=== PATIENT | female | born 1975 | race Caucasian/White ===

== ENCOUNTER 2018-06-17 15:21 | Observation (INO) ==
--- NOTE | 2018-06-17 17:47 | Emergency Department Note ---
Disposition Clinical Impression: Abdominal pain Qualifiers: Abdominal location: right lower quadrant Qualified Code(s): R10.31 - Right lower quadrant pain Disposition: Admitted As Inpatient Condition: Good Referrals: Carl Link MD [Primary Care Provider] - Forms: ED Satisfaction Letter, Work/School Release Time of Disposition: 21:44 General Adult HPI - General Chief complaint: ED Abdominal Pain Stated complaint: RLQ Pain Time Seen by Provider: 06/17/18 17:46 Source: patient Limitations: no limitations Nursing Notes Reviewed: Yes Vital Signs Reviewed: Yes - History of Present Illness HPI Narrative: Female patient presenting to the emergency room complaining of right lower quadrant pain. Has been present for 5 days. Was seen here 3 days ago and had a negative CT of her abdomen. Has been taking Percocet as well as Phenergan to help with the pain but is not getting any relief. Was seen by her primary care physician today and sent here for further abdominal pain. Denies any actual vomiting but does report consistent nausea. Has been taking Phenergan for this with no relief. She reports a high temp of 100.8 on Saturday. Denies constipation does describe the pain as a sharp sensation to the right lower quadrant. Waxes and wanes in intensity however is always present. Does report diarrhea as well. No blood in her stool or urine. No difficult to urinating however states her urine has decreased secondary to decreased intake. Pain Scale: 7 - Related Data Home Medications Medication Instructions Recorded Confirmed Amitriptyline [Elavil] 100 mg PO HS 06/17/18 06/17/18 Docosahexanoic Acid [ Dha] 200 mg PO DAILY 06/17/18 06/17/18 Gabapentin [Neurontin] 300 mg PO TID 06/17/18 06/17/18 LORazepam [Ativan] 1 - 1.5 mg PO HS PRN 06/17/18 06/17/18 Meloxicam 15 mg PO DAILY 06/17/18 06/17/18 Metoprolol Succinate [Toprol Xl] 25 mg PO DAILY 06/17/18 06/17/18 Nystatin Cream [Mycostatin Cream] 1 appl TP Q8H 06/17/18 06/17/18 Ondansetron ODT [Zofran ODT] 4 mg SL Q4H PRN 06/17/18 06/17/18 OxyCODONE/APAP 5/325 [Percocet 1 tab PO DAILY PRN 06/17/18 06/17/18 5/325 MG] Promethazine [Phenergan] 25 mg PO Q4H PRN 06/17/18 06/17/18 Rizatriptan Benzoate [Maxalt] 10 mg PO DAILY PRN 06/17/18 06/17/18 Sertraline [Zoloft] 50 mg PO DAILY 06/17/18 06/17/18 Tizanidine HCl 4 mg PO TID 06/17/18 06/17/18 Allergies Allergy/AdvReac Type Severity Reaction Status Date / Time Hydromorphone [From Dilaudid] AdvReac See Verified 06/17/18 20:15 Comments All systems ED: reviewed and negative except as stated. Review of Systems: As Per HPI Constitutional: Reports: fever, chills, other (Decreased by mouth intake) ENT ED: Denies: congestion Cardiovascular: Denies: chest pain, syncope Respiratory: Reports: other (Reports that she does not want to take a deep breath is when she does take a deep breath her right lower quadrant hurts worse. ). Denies: cough, dyspnea Gastrointestinal: Reports: abdominal pain (Right lower quadrant for 5 days.), nausea, diarrhea. Denies: vomiting, hematemesis, melena, hematochezia Genitourinary: Denies: urgency, dysuria, frequency, hematuria Musculoskeletal: Denies: back pain, neck pain Integumentary: Denies: rash Neurological: Reports: weakness. Denies: headache Past Medical History - Past Medical History Attestation: Yes The following information was validated with the patient. Source: patient Medical history: Reports: migraine, other Surgical history: Reports: orthopedic, other (fusion L5 S1) Psychiatric history: Reports: anxiety SYNTHETIC STAPLE EXTRUDER history: Reports: no SYNTHETIC STAPLE EXTRUDER history - Social History Smoking Status: Current every day smoker Smokeless Tobacco Status: No Alcohol use: Reports: none Drug use: Reports: none Physical Exam - General Limitations: no limitations General appearance: alert, in distress (Appears to be in pain.) - Head Head exam: atraumatic, normocephalic, normal inspection - Eye Eye exam: Present: normal appearance, PERRL, EOMI - ENT ENT exam: normal exam, normal oropharynx, mucous membranes moist - Neck Neck exam: Present: normal inspection, full ROM, trachea midline - Chest Chest inspection: Present: normal inspection, symmetric chest wall rise - Respiratory Respiratory exam: Present: normal lung sounds bilaterally. Absent: respiratory distress, accessory muscle use - Cardiovascular Cardiovascular exam: Present: regular rate, normal rhythm, normal heart sounds - Abdominal Exam Abdominal exam: Present: soft, tenderness (To palpation of right lower quadrant. No pain to the right upper left upper left lower. However she has pain in her right lower quadrant if you palpate the other quadrants. Abdomen does not appear to be peritoneal. Not rigid.), guarding (Right lower quadrant) , Rovsing's sign, tenderness at McBurney's Point. Absent: distention, rigidity , organomegaly, Billings's sign - Extremities Exam Extremities exam: Present: normal inspection, full ROM, normal capillary refill. Absent: tenderness, pedal edema - Back Exam Back exam: Present: normal inspection, full ROM. Absent: tenderness, CVA tenderness (R), CVA tenderness (L) - Neurological Exam Neurological exam: Present: alert, oriented X3 - Psychiatric Psychiatric exam: Present: normal affect, normal mood - Skin Skin exam: Present: warm, dry, intact, normal color. Absent: rash, cyanosis, diaphoresis Course Course Narrative: Female patient does appear to be in comfortable. She was seeing her primary care physician today for follow-up for previous ER visit here for abdominal pain. She states that her primary care physician Dr. Link did speak with Dr. Kearns who suggested she come to the emergency department. Previous CT shows no acute appendicitis however the pain is consistent. She does appear to be in decent amount of pain on palpation. We will image patient's abdomen. Positive basic lab workup. She did have elevated liver enzymes on her previous visit here. We will provide patient with pain medication as well as antiemetic. We will also provide patient with a liter of fluid. - Reevaluation(s) Reevaluation #1: Despite a negative CT and lab work patient is still having right lower quadrant abdominal pain. We will admit to the hospital for serial abdominal exams and her intractable abdominal pain. We have provided her with morphine at this time. She appears to be resting okay. Patient does have a significant amount of squamous epithelial in her urine. She denies any burning on urination. I do not believe this is a UTI at this time. Patient also has mildly elevated liver enzymes. She has no right upper quadrant abdominal pain. Patient's pain is still present however she is getting the ketamine infusion at this time. We did place a consult for surgery. Time: 21:43 - Consultations Consultation #1: Dr. Walsh accepted patient in stable condition. Time: 22:00 Vital Signs Temperature 99.3 F 06/17/18 15:52 Pulse Rate 97 06/17/18 15:52 Respiratory Rate 16 06/17/18 15:52 Blood Pressure 144/100 06/17/18 15:52 O2 Sat by Pulse Oximetry 98 06/17/18 15:52 Temperature 99.3 F 06/17/18 15:52 Pulse Rate 86 06/17/18 21:59 Respiratory Rate 16 06/17/18 21:59 Blood Pressure 123/79 06/17/18 21:59 O2 Sat by Pulse Oximetry 95 06/17/18 21:59 Oxygen Delivery Oxygen Delivery Room Air Medical Decision Making - Medical Records Medical records reviewed: Yes I reviewed the patient's medical records. - Lab Data Lab results reviewed: Yes I reviewed the patient's lab results. Result diagrams: 06/17/18 19:49 06/17/18 19:49 Lab Results 06/17/18 06/17/18 06/17/18 Range/Units 18:54 19:49 19:49 WBC 7.3 (4.3-11.1) K/mcL RBC 5.07 H (3.82-4.97) M/mcL Hgb 15.1 (11.5-15.4) g/dL Hct 44.3 (35.3-44.9) % MCV 87.4 (83.0-100.0) fL MCH 29.8 (28.0-33.3) pg MCHC 34.1 (31.6-35.5) g/dL RDW 12.6 (11.5-14.5) % Plt Count 206 (140-400) K/mcL MPV 9.4 (9.4-12.4) fL Immature Gran % 0.4 (0-4) % Seg Neutrophils % 54.3 % Lymphocytes % 36.2 % Monocytes % 6.2 % Eosinophils % 1.9 % Basophils % 1.0 % Neutrophils # 4.0 (1.6-8.9) K/mcL Lymphocytes # 2.6 (0.6-4.6) K/mcL Monocytes # 0.5 (0.0-1.3) K/mcL Eosinophils # 0.1 (0.0-0.6) K/mcL Basophils # 0.1 (0.0-0.2) K/mcL Sodium 138 (136-145) mEq/L Potassium 3.9 (3.5-5.1) mEq/L Chloride 110 H (98-107) mEq/L Carbon Dioxide 24 (23-29) mEq/L BUN 9 (6-20) mg/dL Creatinine 0.69 (0.60-1.20) mg/dL Est GFR ( Amer) > 60 (> 60) Est GFR (Non-Af Amer) > 60 (> 60) BUN/Creatinine Ratio 13 (6-26) Glucose 78 (70-105) mg/dL Calculated Osmolality 284 (280-300) Calcium 8.7 (8.6-10.3) mg/dL Total Bilirubin 0.4 (0.3-1.0) mg/dL Direct Bilirubin 0.0 (0.0-0.2) mg/dL Indirect Bilirubin 0.4 (0.0-1.2) mg/dL AST 43 H (13-39) Units/L ALT 56 H (7-52) Units/L Alkaline Phosphatase 90 (34-104) Units/L Serum Total Protein 6.7 (6.4-8.9) g/dL Albumin 3.8 (3.5-5.7) g/dL Globulin 2.9 (2.4-3.5) g/dL Albumin/Globulin Ratio 1.3 (1.1-2.2) Amylase 31 (29-103) Units/L Lipase 27 (11-82) Units/L Urine Color Yellow (Yellow) Urine Clarity Cloudy A (Clear) Urine pH 5.5 (5.0-8.0) pH Units Ur Specific [place] 1.018 (1.010-1.025) Urine Protein Negative (Neg-Trace) mg/dL Urine Glucose (UA) Normal (Normal) mg/dL Urine Ketones Negative (Negative) mg/dL Urine Blood Negative (Negative) Urine Nitrite Negative (Negative) Urine Bilirubin Negative (Negative) Urine Urobilinogen Normal (Normal) mg/dL Ur Leukocyte Esterase Small H (Negative) Urine Microscopic WBC 5-15 H (0-3) per hpf Ur Squamous Epith Cells Many H (None-Few) per lpf Urine Bacteria Moderate H (None-Few) per hpf Hyaline Casts None Seen (None-Few) per lpf Ur Culture Indicated? NO. A (NO) - Radiology Data Radiology results reviewed: Yes I reviewed the patient's radiology results. Abdomen/Pelvis CT 06/17/18 18:09 IMPRESSION: 1. No acute intra-abdominal process identified. 2. Hepatic steatosis. D/ / Jae Caballero MD / Jae Caballero MD Interpreting Provider: Jae Caballero MD
[2018-06-17] MEDS ORDERED: Ondansetron 4 MG/2 ML VIAL IVP ONE (18:08)
[2018-06-17] MEDS ORDERED: *HR* FentaNYL (PF) 100 MCG/2 ML VIAL IVP ONE ×2 (18:10→20:03)
[2018-06-17] MEDS ORDERED: 0.9 % Sodium Chloride 1,000 ML IVC ONE (18:21)
[2018-06-17 19:04] LABS: Bilirubin,Urine Negative (Negative); Blood,Urine Negative (Negative); Clarity,Urine Cloudy (Clear); Color,Urine Yellow (Yellow); Glucose,Urine (UA) Normal (Normal); Ketones,Urine Negative (Negative); Leukocyte Esterase,Urine Small (Negative); Nitrite,Urine Negative (Negative); PH,Urine 5.5 pH Units (5.0-8.0); Protein,Urine Negative (Neg-Trace); Specific Gravity,Urine 1.018 (1.010-1.025); Urobilinogen,Urine Normal (Normal)
[2018-06-17 19:06] LABS: Bacteria,Urine Moderate per hpf (None-Few); Hyaline Casts,Urine None Seen per lpf (None-Few); Squamous Epithelial Cell,Urine Many per lpf (None-Few)
[2018-06-17] MEDS ORDERED: Ketamine *HR* 20 MG in 0.9 % Sodium Chloride 100 ML IVPB ONE (20:02)
[2018-06-17] MEDS ORDERED: *HR* Morphine 2 MG/ML SYRINGE IVP STA (20:06)
[2018-06-17 20:16] LABS: Basophils # 0.1 K/mcL (0.0-0.2); Eosinophils # 0.1 K/mcL (0.0-0.6); Eosinophils % 1.9 %; Hematocrit 44.3 % (35.3-44.9); Hemoglobin 15.1 g/dL (11.5-15.4); Immature Granulocytes % 0.4 % (0-4); Lymphocytes # 2.6 K/mcL (0.6-4.6); Lymphocytes % 36.2 %; Mean Corpuscular HGB Conc 34.1 g/dL (31.6-35.5); Mean Corpuscular Hemoglobin 29.8 pg (28.0-33.3); Mean Corpuscular Volume 87.4 fL (83.0-100.0); Mean Platelet Volume 9.4 fL (9.4-12.4); Monocytes # 0.5 K/mcL (0.0-1.3); Monocytes % 6.2 %; Platelet Count 206 K/mcL (140-400); Red Blood Count 5.07 M/mcL (3.82-4.97); Red Cell Distribution Width 12.6 % (11.5-14.5); Segmented Neutrophils % 54.3 %
[2018-06-17 20:37] LABS: Alanine Aminotransferase 56 Units/L (7-52); Albumin 3.8 g/dL (3.5-5.7); Albumin/Globulin Ratio 1.3 (1.1-2.2); Alkaline Phosphatase 90 Units/L (34-104); Amylase 31 Units/L (29-103); Aspartate Amino Transferase 43 Units/L (13-39); BUN/Creatinine Ratio 13 (6-26); Bilirubin,Indirect 0.4 mg/dL (0.0-1.2); Bilirubin,Total 0.4 mg/dL (0.3-1.0); Blood Urea Nitrogen 9 mg/dL (6-20); Calcium 8.7 mg/dL (8.6-10.3); Carbon Dioxide 24 mEq/L (23-29); Chloride 110 mEq/L (98-107); Globulin 2.9 g/dL (2.4-3.5); Glucose 78 mg/dL (70-105); Lipase 27 Units/L (11-82); Osmolality,Calculated 284 (280-300); Potassium 3.9 mEq/L (3.5-5.1); Sodium 138 mEq/L (136-145); Total Protein 6.7 g/dL (6.4-8.9); eGFR For Non-African Americans > 60 (> 60)
[2018-06-17] MEDS: Nicotine 7 MG PATCH.TD24 TD SCH (21:10)
[2018-06-18] MEDS ORDERED: Ketorolac 15 MG/ML VIAL IVP PRN (00:12)
[2018-06-18] MEDS ORDERED: Naloxone 0.4 MG/ML INJ IVP PRN ×2 (00:12)
[2018-06-18] MEDS ORDERED: Ringers Solution, Lactated 1,000 ML IVC SCH (00:15)
[2018-06-18] MEDS ORDERED: *HR* LORazepam 1 MG TABLET PO PRN (00:17)
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
--- NOTE | 2018-06-18 00:40 | Emergency Department Note ---
Disposition Clinical Impression: Abdominal pain Qualifiers: Abdominal location: right lower quadrant Qualified Code(s): R10.31 - Right lower quadrant pain Disposition: Admitted As Inpatient Condition: Good General Adult HPI - General Chief complaint: ED Abdominal Pain Stated complaint: RLQ Pain Time Seen by Provider: 06/17/18 17:46 Source: patient Limitations: no limitations - History of Present Illness Pain Scale: 8 - Related Data Home Medications Medication Instructions Recorded Confirmed Amitriptyline [Elavil] 100 mg PO HS 06/17/18 06/17/18 Docosahexanoic Acid [ Dha] 200 mg PO DAILY 06/17/18 06/17/18 Gabapentin [Neurontin] 300 mg PO TID 06/17/18 06/17/18 LORazepam [Ativan] 1 - 1.5 mg PO HS PRN 06/17/18 06/17/18 Meloxicam 15 mg PO DAILY 06/17/18 06/17/18 Metoprolol Succinate [Toprol Xl] 25 mg PO DAILY 06/17/18 06/17/18 Nystatin Cream [Mycostatin Cream] 1 appl TP Q8H 06/17/18 06/17/18 Ondansetron ODT [Zofran ODT] 4 mg SL Q4H PRN 06/17/18 06/17/18 OxyCODONE/APAP 5/325 [Percocet 1 tab PO DAILY PRN 06/17/18 06/17/18 5/325 MG] Promethazine [Phenergan] 25 mg PO Q4H PRN 06/17/18 06/17/18 Rizatriptan Benzoate [Maxalt] 10 mg PO DAILY PRN 06/17/18 06/17/18 Sertraline [Zoloft] 50 mg PO DAILY 06/17/18 06/17/18 Tizanidine HCl 4 mg PO TID 06/17/18 06/17/18 Allergies Allergy/AdvReac Type Severity Reaction Status Date / Time Hydromorphone [From Dilaudid] AdvReac See Verified 06/17/18 20:15 Comments Constitutional: Reports: fever, chills, other (Decreased by mouth intake) ENT ED: Denies: congestion Cardiovascular: Denies: chest pain, syncope Respiratory: Reports: other (Reports that she does not want to take a deep breath is when she does take a deep breath her right lower quadrant hurts worse. ). Denies: cough, dyspnea Gastrointestinal: Reports: abdominal pain (Right lower quadrant for 5 days.), nausea, diarrhea. Denies: vomiting, hematemesis, melena, hematochezia Genitourinary: Denies: urgency, dysuria, frequency, hematuria Musculoskeletal: Denies: back pain, neck pain Integumentary: Denies: rash Neurological: Reports: weakness. Denies: headache Past Medical History - Past Medical History Medical history: Reports: migraine, other Surgical history: Reports: orthopedic, other Psychiatric history: Reports: anxiety DRAMATIC CRITIC history: Reports: no DRAMATIC CRITIC history - Social History Smoking Status: Current every day smoker Smokeless Tobacco Status: No Alcohol use: Reports: none Drug use: Reports: none Physical Exam - General Limitations: no limitations General appearance: alert, in distress (Appears to be in pain.) Course Vital Signs Temperature 99.3 F 06/17/18 15:52 Pulse Rate 97 06/17/18 15:52 Respiratory Rate 16 06/17/18 15:52 Blood Pressure 144/100 06/17/18 15:52 O2 Sat by Pulse Oximetry 98 06/17/18 15:52 Temperature 98.4 F 06/17/18 23:08 Pulse Rate 91 06/17/18 23:08 Respiratory Rate 18 06/17/18 23:08 Blood Pressure 137/89 06/17/18 23:08 O2 Sat by Pulse Oximetry 93 06/18/18 00:05 Oxygen Delivery Oxygen Delivery Room Air Medical Decision Making - Lab Data Result diagrams: 06/17/18 19:49 06/17/18 19:49 Lab Results 06/17/18 06/17/18 06/17/18 Range/Units 18:54 19:49 19:49 WBC 7.3 (4.3-11.1) K/mcL RBC 5.07 H (3.82-4.97) M/mcL Hgb 15.1 (11.5-15.4) g/dL Hct 44.3 (35.3-44.9) % MCV 87.4 (83.0-100.0) fL MCH 29.8 (28.0-33.3) pg MCHC 34.1 (31.6-35.5) g/dL RDW 12.6 (11.5-14.5) % Plt Count 206 (140-400) K/mcL MPV 9.4 (9.4-12.4) fL Immature Gran % 0.4 (0-4) % Seg Neutrophils % 54.3 % Lymphocytes % 36.2 % Monocytes % 6.2 % Eosinophils % 1.9 % Basophils % 1.0 % Neutrophils # 4.0 (1.6-8.9) K/mcL Lymphocytes # 2.6 (0.6-4.6) K/mcL Monocytes # 0.5 (0.0-1.3) K/mcL Eosinophils # 0.1 (0.0-0.6) K/mcL Basophils # 0.1 (0.0-0.2) K/mcL Sodium 138 (136-145) mEq/L Potassium 3.9 (3.5-5.1) mEq/L Chloride 110 H (98-107) mEq/L Carbon Dioxide 24 (23-29) mEq/L BUN 9 (6-20) mg/dL Creatinine 0.69 (0.60-1.20) mg/dL Est GFR ( Amer) > 60 (> 60) Est GFR (Non-Af Amer) > 60 (> 60) BUN/Creatinine Ratio 13 (6-26) Glucose 78 (70-105) mg/dL Calculated Osmolality 284 (280-300) Calcium 8.7 (8.6-10.3) mg/dL Total Bilirubin 0.4 (0.3-1.0) mg/dL Direct Bilirubin 0.0 (0.0-0.2) mg/dL Indirect Bilirubin 0.4 (0.0-1.2) mg/dL AST 43 H (13-39) Units/L ALT 56 H (7-52) Units/L Alkaline Phosphatase 90 (34-104) Units/L Serum Total Protein 6.7 (6.4-8.9) g/dL Albumin 3.8 (3.5-5.7) g/dL Globulin 2.9 (2.4-3.5) g/dL Albumin/Globulin Ratio 1.3 (1.1-2.2) Amylase 31 (29-103) Units/L Lipase 27 (11-82) Units/L Urine Color Yellow (Yellow) Urine Clarity Cloudy A (Clear) Urine pH 5.5 (5.0-8.0) pH Units Ur Specific [place] 1.018 (1.010-1.025) Urine Protein Negative (Neg-Trace) mg/dL Urine Glucose (UA) Normal (Normal) mg/dL Urine Ketones Negative (Negative) mg/dL Urine Blood Negative (Negative) Urine Nitrite Negative (Negative) Urine Bilirubin Negative (Negative) Urine Urobilinogen Normal (Normal) mg/dL Ur Leukocyte Esterase Small H (Negative) Urine Microscopic WBC 5-15 H (0-3) per hpf Ur Squamous Epith Cells Many H (None-Few) per lpf Urine Bacteria Moderate H (None-Few) per hpf Hyaline Casts None Seen (None-Few) per lpf Ur Culture Indicated? NO. A (NO) Attestation Statement - Attestation Attestation: I examined this patient and my medical decision-making was reviewed with the Resident Physician. I agree with the documented findings, disposition and treatment plan as described except to the extent set forth below. Abdominal pain, negative CT for appy. Very concerning history, tenderness exactly at McBurney's point. Multiple doses of analgesics in the ED, minimal change in pain. 2nd visit for same complaint in 48 hours with a concerning exam , warrants observation/surgical evaluation.
[2018-06-18] MEDS: OXYCODONE Oral CONC 10 MG/0.5 ML ORAL.SYG SL PRN ×2 (00:53→11:53)
[2018-06-18] MEDS: tiZANidine 4 MG TABLET PO SCH ×2 (00:54→10:14)
[2018-06-18] MEDS: Ondansetron 4 MG/2 ML VIAL IVP PRN ×2 (00:54→10:19)
[2018-06-18] MEDS: *HR* Heparin 5,000 UNIT/ML VIAL SQ SCH ×3 (00:55→14:16)
[2018-06-18] MEDS ORDERED: Gabapentin 300 MG CAPSULE PO SCH (09:00)
[2018-06-18] MEDS ORDERED: Metoprolol XL (24 HR) Succ 25 MG TAB.ER.24H PO SCH (09:00)
[2018-06-18] MEDS: Nicotine 7 MG PATCH.TD24 TD SCH (10:14)
[2018-06-18] MEDS ORDERED: Ketorolac 30 MG/ML VIAL IVP PRN (10:45)
[2018-06-18] MEDS ORDERED: Ringers Solution, Lactated 250 ML IVC ONE (10:59)
--- NOTE | 2018-06-18 11:16 | Event Note ---
Date of Encounter: 06/18/18 Time of Encounter: 11:13 Patient continues to have significant abdominal pain. Located mainly in the right lower quadrant. Also reports nausea. Pain not relieved despite receiving Toradol. According to nurse, patient had some relief after she received oxycodone sublingually last night. However patient's blood pressure has been on the lower side of normal. Hence this medication has not been given so far this morning. Patient and family are mainly concerned that the patient' s daughters had similar episodes of abdominal pain and although the CT scans were negative, she was eventually diagnosed with appendicitis during exploratory laparotomy. As such they are very much concerned that patient may be having similar symptoms. Patient reports that her daughters have Ehler- Danlos syndrome and she suspects that she has the same disease. Discussed patient's symptoms with surgery. We will evaluate the patient later today. In the meantime continue symptomatic treatment. Keep nothing by mouth. IV fluids and pain control.
[2018-06-18] MEDS ORDERED: NON-FORMULARY MEDICATION 1 EACH EACH (Rizatriptan Benzoate [Maxalt] 10 MG) PO PRN (11:24)
[2018-06-18] MEDS ORDERED: SUMAtriptan succinate 50 MG TABLET PO PRN (11:35)
--- NOTE | 2018-06-18 12:29 | General Surgery Consult Note ---
<Frandy Davies R - Last Filed: 06/18/18 12:21> Date of Encounter: 06/18/18 Time of Encounter: 12:22 Assessment and Plan (1) Abdominal pain Current Visit: Yes Status: Acute CT scan negative for acute findings, WBC normal, patient is afebrile Patient and family is requesting exploratory surgery at this time. Plan: Exploratory surgery would not be recommended this time given CT, laboratory findings, and unclear etiology of patient's pain. Recommend conservative measures, patient is on Percocet at baseline and subsequently her pain will be more difficult to control Comfort care and pain management prn antiemetic May advance diet as tolerated by patient. Ambulation 3 times a day Patient and family are not open to conservative treatment options. At this time they are requesting transfer to outside hospital. I have relayed this information to primary care team. Pending acceptance of the admission patient is okay for transfer. If patient is transferred she would like hardcopies of records of hospitalization as well as imaging CDs in hand when she leaves. Qualifiers: Abdominal location: right lower quadrant Qualified Code(s): R10.31 - Right lower quadrant pain History of Present Illness Consult date: 06/17/18 (Dr. Kearns) Reason for consult: abdominal pain Requesting physician: Aliya Greenberg History of present illness: She is 42-year-old female with a history of chronic low back pain secondary to fracture and orthopedic fusion. Patient developed right lower quadrant abdominal pain 5 days ago. Pain was progressive in intensity and became sharp in quality, worse with movement. Admits to associated nausea and vomiting at onset, and fever with highest measured temperature of 100.8 last Saturday. Reports poor oral intake since onset. Denies hematemesis, hemoptysis, hematochezia or melena. Patient does admit to diarrhea the day before onset which has resolved. Patient initially presented to the emergency department on 06/15/2018. CT abdomen and pelvis at time was negative for acute process, vital signs and labs were within normal limits. Patient was discharged to home with antirheumatic and pain medication. Patient reports the pain progressed, she presented to her primary care physician. PCP contacted Dr. Kearns who made the recommendation that she be evaluated in the ED. Patient returned to the ED on for reevaluation. CT abdomen and pelvis again was obtained and negative for acute abnormality. Laboratory and vital signs were within normal limits. Patient reports that pain medicine is not effective at controlling her pain. She has difficulty ambulating due to pain. Patient reports a family history of Rebecca-Danlos syndrome affecting her 2 daughters. Both of her daughters experienced similar right lower quadrant pain with negative CT findings and positive acute appendicitis upon laparoscopic exploration. Patient is concerned that she may also have acute appendicitis despite negative CT findings and normal WBC. She is requesting surgical evaluation and would like to undergo laparoscopic exploratory surgery due to intensity of pain. Past surgical history includes laparoscopic cholecystectomy, open hysterectomy, and lumbar fusion. Patient denies history of small bowel obstruction. Past Med Surg Social Fam HX - Past Medical History Medical history: migraine, other Additional medical history: chronic back pain Psychiatric history: anxiety - Past Surgical History Surgical History: cholecystectomy, hysterectomy, orthopedic, other Additional surgical history: L1 S5 fusion - Social History Smoking Status: Current every day smoker Smokeless Tobacco Status: No Alcohol use: none Drug use: none - Family History Mother Adopted: [place]: [place] Family Member Ethnicity: Non- Living Status: Still Living Hx Family GI Disorders: Yes Hx Family Endocrine Disorder: Yes Medications and Allergies Amitriptyline [Elavil] 100 mg PO HS 06/17/18 [History] Docosahexanoic Acid [ Dha] 200 mg PO DAILY 06/17/18 [History] Gabapentin [Neurontin] 300 mg PO TID 06/17/18 [History] LORazepam [Ativan] 1 - 1.5 mg PO HS PRN 06/17/18 [History] Meloxicam 15 mg PO DAILY 06/17/18 [History] Metoprolol Succinate [Toprol Xl] 25 mg PO DAILY 06/17/18 [History] Nystatin Cream [Mycostatin Cream] 1 appl TP Q8H 06/17/18 [History] Ondansetron ODT [Zofran ODT] 4 mg SL Q4H PRN 06/17/18 [History] OxyCODONE/APAP 5/325 [Percocet 5/325 MG] 1 tab PO DAILY PRN 06/17/18 [History] Promethazine [Phenergan] 25 mg PO Q4H PRN 06/17/18 [History] Rizatriptan Benzoate [Maxalt] 10 mg PO DAILY PRN 06/17/18 [History] Sertraline [Zoloft] 50 mg PO DAILY 06/17/18 [History] Tizanidine HCl 4 mg PO TID 06/17/18 [History] 3 Allergy/AdvReac Type Severity Reaction Status Date / Time Hydromorphone [From Dilaudid] AdvReac See Verified 06/17/18 20:15 Comments Review of Systems All systems PM: The remainder of the systems were reviewed and are negative - Constitutional fever(s), no chills - Gastrointestinal abdominal pain, constipation, nausea, vomiting, no change in bowel habits, no coffee ground emesis, no dysphagia, no hematemesis, no hematochezia, no odynophagia General Surgery Exam Initial Vital Signs Temp Pulse Resp BP Pulse Ox 99.3 F 97 16 144/100 98 06/17/18 15:52 06/17/18 15:52 06/17/18 15:52 06/17/18 15:52 06/17/18 15:52 - General physical appearance well developed, well nourished, moderate distress, moderate pain - Eyes PERRL, normal ocular movement - ENT normal mucosa, atraumatic, normocephalic - Neck trachea midline, no venous distension - Respiratory normal expansion, normal respiratory effort - Cardiovascular Cardiovascular exam: Present: RRR - Abdomen Abdomen general surgery: Present: bowel sounds present, soft, tender, rebound, surgical scars (Well healed scars from prior hysterectomy and lap micki). Absent: guarding, rigid Abdominal Tenderness: Present: RLQ - Integumentary Integumentary general surgery: Present: warm and dry - Neurologic Present: CN 2-12 grossly intact - Musculoskeletal Present: normal posture - Psychiatric Psychiatric general surgery: Present: A&Ox3, speech is normal, memory intact Exam Initial Vital Signs Temp Pulse Resp BP Pulse Ox 99.3 F 97 16 144/100 98 06/17/18 15:52 06/17/18 15:52 06/17/18 15:52 06/17/18 15:52 06/17/18 15:52 Results - Labs 06/17/18 19:49 06/17/18 19:49 Abnormal lab results RBC 5.07 M/mcL (3.82-4.97) H 06/17/18 19:49 Chloride 110 mEq/L (98-107) H 09/18/18 19:49 AST 43 Units/L (13-39) H 18 19:49 ALT 56 Units/L (7-52) H 06/17/18 19:49 Urine Clarity Cloudy (Clear) A 06/17/18 18:54 Ur Leukocyte Esterase Small (Negative) H 06/17/18 18:54 Urine Microscopic WBC 5-15 per hpf (0-3) H 06/17/18 18:54 Ur Squamous Epith Cells Many per lpf (None-Few) H 06/17/18 18:54 Urine Bacteria Moderate per hpf (None-Few) H 06/17/18 18:54 Ur Culture Indicated? NO. (NO) A 06/17/18 18:54 All other labs normal. Consult Discharge Plan - Plan Referrals: Carl Link MD [Primary Care Provider] - <Orlin Kearns - Last Filed: 06/18/18 13:31> Date of Encounter: 06/18/18 Review of Systems All systems PM: The remainder of the systems were reviewed and are negative General Surgery Exam Initial Vital Signs Temp Pulse Resp BP Pulse Ox 99.3 F 97 16 144/100 98 06/17/18 15:52 18 15:52 18 15:52 18 15:52 18 15:52 Exam Initial Vital Signs Temp Pulse Resp BP Pulse Ox 99.3 F 97 16 144/100 98 06/17/18 15:52 06/17/18 15:52 06/17/18 15:52 06/17/18 15:52 06/17/18 15:52 Results - Labs 06/17/18 19:49 06/17/18 19:49 Abnormal lab results RBC 5.07 M/mcL (3.82-4.97) H 06/17/18 19:49 Chloride 110 mEq/L (98-107) H 06/17/18 19:49 AST 43 Units/L (13-39) H 18 19:49 ALT 56 Units/L (7-52) H 06/17/18 19:49 Urine Clarity Cloudy (Clear) A 06/17/18 18:54 Ur Leukocyte Esterase Small (Negative) H 06/17/18 18:54 Urine Microscopic WBC 5-15 per hpf (0-3) H 09/18/18 18:54 Ur Squamous Epith Cells Many per lpf (None-Few) H 1818 18:54 Urine Bacteria Moderate per hpf (None-Few) H 1818 18:54 Ur Culture Indicated? NO. (NO) A 1818 18:54 All other labs normal. - Attending Attestation I examined this patient and my medical decision-making was reviewed with the Resident Physician. I agree with the documented findings, disposition and treatment plan as described except to the extent set forth below. The patient is seen and evaluated. The CAT scan fails to demonstrate an etiology for the right lower quadrant pain. The patient is insistent that this is appendix and that we should perform appendectomy immediately. I do not think that there is a clear indication for appendectomy and I do not think proceeding with appendectomy is in the patient's best interest. She has chosen to seek evaluation and second opinion. Certainly we can provide any records generated from this admission Orlin Kearns MD FACS
[2018-06-18] MEDS ORDERED: *HR* FentaNYL (PF) 100 MCG/2 ML VIAL IVP ONE ×2 (13:02→14:05)
[2018-06-18 13:04] VITALS: BP 105/70
[2018-06-18] MEDS ORDERED: *HR* Promethazine 25 MG/ML VIAL IVP ONE (14:05)
--- NOTE | 2018-06-18 15:28 | Discharge Summary ---
Date of Encounter: 06/18/18 Time of Encounter: 15:26 - Discharge Diagnosis (1) RLQ abdominal pain Priority: Primary Status: Acute (2) Chronic back pain Priority: Secondary Status: Acute Qualifiers: Back pain location: low back pain Back pain laterality: midline Sciatica presence: without sciatica Qualified Code(s): M54.5 - Low back pain; G89.29 - Other chronic pain (3) Migraine Priority: Secondary Status: Acute Qualifiers: Migraine type: without aura Status migrainosus presence: without status migrainosus Intractability: not intractable Qualified Code(s): G43.009 - Migraine without aura, not intractable, without status migrainosus Hospital course: Ms. Finch is a 42 year old female patient who was hospitalized here with acute right lower quadrant abdominal pain. CT scan was done twice within the past 3 days did not show any acute intra-abdominal process. Her appendix was visualized and was not inflamed. She did not have any elevation in her WBC count. Her vital signs were also within normal limits. Her lipase was normal. She had mild elevation in liver enzymes with AST of 43, ALT of 56. However given that she had visited the ER twice with similar complaints having been sent over from her primary care provider's office the second time, she had been hospitalized for surgical evaluation. Surgery evaluated the patient today and did not recommend any urgent surgical intervention. However, patient is concerned that she may have appendicitis and wishes to be transferred to [facility] for further care. I placed a call to [facility] and arrange for the patient reports transferred to [facility]. She will be taken to the ER under an accepting physician as they currently are on diversion and did not have any in patient beds available. Discharge discussed with: patient, family, [facility] consultant - Time Spent with Patient Total time spent providing and/or coordinating discharge services: Greater than 30 minutes (45 min) - Discharge Medications Home Medications: Amitriptyline [Elavil] 100 mg PO HS 06/17/18 [History] Docosahexanoic Acid [ Dha] 200 mg PO DAILY 06/17/18 [History] Gabapentin [Neurontin] 300 mg PO TID 06/17/18 [History] LORazepam [Ativan] 1 - 1.5 mg PO HS PRN 06/17/18 [History] Meloxicam 15 mg PO DAILY 06/17/18 [History] Metoprolol Succinate [Toprol Xl] 25 mg PO DAILY 06/17/18 [History] Nystatin Cream [Mycostatin Cream] 1 appl TP Q8H 06/17/18 [History] Ondansetron ODT [Zofran ODT] 4 mg SL Q4H PRN 06/17/18 [History] OxyCODONE/APAP 5/325 [Percocet 5/325 MG] 1 tab PO DAILY PRN 06/17/18 [History] Promethazine [Phenergan] 25 mg PO Q4H PRN 06/17/18 [History] Rizatriptan Benzoate [Maxalt] 10 mg PO DAILY PRN 06/17/18 [History] Sertraline [Zoloft] 50 mg PO DAILY 06/17/18 [History] Tizanidine HCl 4 mg PO TID 06/17/18 [History] Allergies/Adverse Reactions: 3 Allergy/AdvReac Type Severity Reaction Status Date / Time Hydromorphone [From Dilaudid] AdvReac See Verified 06/17/18 20:15 Comments Date of admission: 06/17/18 22:13 Primary care physician: Carl Link MD Consults: 06/17/18 21:49 Consult to Surgery [CONS] Stat Consulting Provider: [facility] Reason for Consult: abdominal pain Call Completed: Yes Discharging clinician: Darren Farr Anticipated date of discharge: 06/18/18 - Constitutional Vitals: Temp Pulse Resp BP Pulse Ox 98.1 F 78 16 105/70 96 06/18/18 13:03 06/18/18 13:03 06/18/18 13:03 06/18/18 13:03 06/18/18 13:03 General appearance: Present: A&O X 3, pleasant, obese, severe distress, answers questions appropriately Exam: . - Respiratory Respiratory exam: Present: CTAB. Absent: accessory muscle use, rales, rhonchi, wheezes - Cardiovascular Cardiovascular exam: Present: RRR, +S1, +S2. Absent: diastolic murmur, gallop, rubs, systolic murmur - GI/Abdominal GI/Abdominal exam: Present: normal bowel sounds, soft, tenderness (right lower quadrant), no peritoneal signs. Absent: distended, guarding, rebound - Extremities Exam Extremities exam: Present: warm, radial pulses palpable and symmetrical. Absent : calf tenderness, cyanotic, pedal edema - Neurological Exam Neurological exam: Present: CN II-XII intact, oriented X3, no focal deficits. Absent: facial droop, speech deficit - Patient Status Disposition: Transfer Other Condition: Fair - Discharge Instructions Follow Up With: Carl Link MD [Primary Care Provider] -
== END 2018-06-18 14:42 | disposition other institution (70) ==
LOC: EMEROOARM 15:21 → 2ANU 15:21
PROVIDERS: ADMIT Internal Medicine Cardiovascular Disease; ATTEND Internal Medicine Cardiovascular Disease

== ENCOUNTER 2019-10-01 19:12 | Observation (INO) ==
[2019-10-01] MEDS ORDERED: Naloxone 0.4 MG/ML INJ IVP ONE (19:16)
[2019-10-01 19:42] LABS: Basophils # 0.1 K/mcL (0.0-0.2); Basophils % 0.3 %; Eosinophils % 0.2 %; Hematocrit 48.5 % (35.3-44.9); Hemoglobin 16.3 g/dL (11.5-15.4); Immature Granulocytes % 0.4 % (0-4); Lymphocytes # 1.4 K/mcL (0.6-4.6); Lymphocytes % 9.2 %; Mean Corpuscular HGB Conc 33.6 g/dL (31.6-35.5); Mean Corpuscular Hemoglobin 29.4 pg (28.0-33.3); Mean Corpuscular Volume 87.5 fL (83.0-100.0); Mean Platelet Volume 8.9 fL (9.4-12.4); Monocytes # 1.1 K/mcL (0.0-1.3); Monocytes % 7.3 %; Neutrophils # 12.4 K/mcL (1.6-8.9); Platelet Count 263 K/mcL (140-400); Red Blood Count 5.54 M/mcL (3.82-4.97); Red Cell Distribution Width 13.2 % (11.5-14.5); Segmented Neutrophils % 82.6 %
[2019-10-01 19:48] LABS: Bilirubin,Urine Small (Negative); Blood,Urine Negative (Negative); Clarity,Urine Clear (Clear); Color,Urine Dark Yellow (Yellow); Glucose,Urine (UA) Normal (Normal); Ketones,Urine Negative (Negative); Leukocyte Esterase,Urine Negative (Negative); Nitrite,Urine Negative (Negative); Protein,Urine 30 mg/dL (Neg-Trace); Specific Gravity,Urine > 1.030 (1.010-1.025); Urobilinogen,Urine Normal (Normal)
[2019-10-01 19:49] LABS: Bacteria,Urine None Seen per hpf (None-Few); RBC,Urine 0-3 per hpf (0-3); Squamous Epithelial Cell,Urine Many per lpf (None-Few); WBC,Urine 0-3 per hpf (0-3)
[2019-10-01 20:00] LABS: Amphetamine Screen,Urine Negative ng/mL (Cutoff=1000); Barbiturate Screen,Urine Negative ng/mL (Cutoff=200); Benzodiazepines Screen,Urine Negative ng/mL (Cutoff=200); Cannabinoid Screen,Urine Negative ng/mL (Cutoff = 50); Cocaine Screen,Urine Negative ng/mL (Cutoff= 300); Opiate Screen,Urine Positive ng/mL (Cutoff=300); Phencyclidine Screen,Urine Negative ng/mL (Cutoff=25)
[2019-10-01 20:00] LABS: Acetaminophen 11 mcg/mL (10-20); BUN/Creatinine Ratio 18 (6-26); Blood Urea Nitrogen 14 mg/dL (6-20); Calcium 9.5 mg/dL (8.6-10.3); Carbon Dioxide 28 mEq/L (23-29); Chloride 100 mEq/L (98-107); Ethanol < 10 mg/dL (Less than 10); Glucose 133 mg/dL (70-105); Osmolality,Calculated 288 (280-300); Potassium 4.1 mEq/L (3.5-5.1); Salicylate < 2.5 mg/dL (15.0-30.0); Sodium 138 mEq/L (136-145); eGFR For African Americans > 60 (> 60); eGFR For Non-African Americans > 60 (> 60)
[2019-10-01 20:01] LABS: Hyaline Casts,Urine Many per lpf (None-Few); Mucus,Urine Few per lpf (Few)
[2019-10-01] MEDS ORDERED: 0.9 % Sodium Chloride 1,000 ML IVC ONE (21:10)
[2019-10-01 22:46] LABS: Albumin 4.3 g/dL (3.5-5.7); Albumin/Globulin Ratio 1.3 (1.1-2.2); Bilirubin,Direct 0.1 mg/dL (0.0-0.2); Bilirubin,Indirect 0.6 mg/dL (0.0-1.0); Bilirubin,Total 0.7 mg/dL (0.3-1.0); Globulin 3.4 g/dL (2.4-3.5); Total Protein 7.7 g/dL (6.4-8.9)
[2019-10-01] MEDS ORDERED: Naloxone 0.4 MG/ML INJ IVP PRN (23:00)
[2019-10-01] MEDS ORDERED: 0.9 % Sodium Chloride 1,000 ML IVC SCH (23:00)
[2019-10-02] MEDS: *HR* Heparin 5,000 UNIT/ML VIAL SQ SCH ×3 (05:47→22:34)
[2019-10-02 05:51] LABS: Basophils # 0.1 K/mcL (0.0-0.2); Basophils % 0.4 %; Eosinophils # 0.1 K/mcL (0.0-0.6); Eosinophils % 0.7 %; Immature Granulocytes % 0.3 % (0-4); Lymphocytes # 2.9 K/mcL (0.6-4.6); Lymphocytes % 24.5 %; Mean Corpuscular HGB Conc 33.7 g/dL (31.6-35.5); Mean Corpuscular Hemoglobin 29.9 pg (28.0-33.3); Mean Corpuscular Volume 88.7 fL (83.0-100.0); Mean Platelet Volume 9.4 fL (9.4-12.4); Monocytes # 0.7 K/mcL (0.0-1.3); Monocytes % 6.2 %; Neutrophils # 7.9 K/mcL (1.6-8.9); Platelet Count 219 K/mcL (140-400); Red Blood Count 4.62 M/mcL (3.82-4.97); Red Cell Distribution Width 13.2 % (11.5-14.5); Segmented Neutrophils % 67.9 %; White Blood Count 11.7 K/mcL (4.3-11.1)
[2019-10-02 05:52] LABS: Hemoglobin 13.8 g/dL (11.5-15.4)
[2019-10-02 06:12] LABS: Acetaminophen < 10 mcg/mL (10-20); Alanine Aminotransferase 31 Units/L (7-52); Albumin 3.5 g/dL (3.5-5.7); Albumin/Globulin Ratio 1.2 (1.1-2.2); Alkaline Phosphatase 106 Units/L (34-104); Aspartate Amino Transferase 23 Units/L (13-39); BUN/Creatinine Ratio 19 (6-26); Bilirubin,Direct 0.2 mg/dL (0.0-0.2); Bilirubin,Indirect 0.4 mg/dL (0.0-1.0); Bilirubin,Total 0.6 mg/dL (0.3-1.0); Blood Urea Nitrogen 11 mg/dL (6-20); Calcium 8.5 mg/dL (8.6-10.3); Carbon Dioxide 27 mEq/L (23-29); Chloride 104 mEq/L (98-107); Glucose 101 mg/dL (70-105); Osmolality,Calculated 290 (280-300); Potassium 3.6 mEq/L (3.5-5.1); Sodium 140 mEq/L (136-145); Total Protein 6.5 g/dL (6.4-8.9); eGFR For African Americans > 60 (> 60); eGFR For Non-African Americans > 60 (> 60)
[2019-10-02] MEDS: Piperacillin/Tazobactam 3.375 GM in 0.9 % Sodium Chloride Mini Bag 100 ML IVPB SCH ×2 (10:32→15:49)
[2019-10-02] MEDS: Ipratropium/Albuterol Neb 3 ML IH SCH ×3 (11:38→19:34)
[2019-10-03] MEDS: Piperacillin/Tazobactam 3.375 GM in 0.9 % Sodium Chloride Mini Bag 100 ML IVPB SCH ×3 (00:30→15:38)
[2019-10-03] MEDS: Ipratropium/Albuterol Neb 3 ML IH SCH ×7 (00:31→22:18)
[2019-10-03] MEDS: *HR* Heparin 5,000 UNIT/ML VIAL SQ SCH ×3 (06:35→20:37)
[2019-10-03] MEDS: Nicotine 21 MG PATCH.TD24 TD SCH (11:33)
[2019-10-03] MEDS ORDERED: Acetaminophen 325 MG TABLET PO PRN (14:21)
[2019-10-03] MEDS ORDERED: Ondansetron 4 MG/2 ML VIAL IVP PRN (18:53)
[2019-10-04] MEDS: Piperacillin/Tazobactam 3.375 GM in 0.9 % Sodium Chloride Mini Bag 100 ML IVPB SCH ×3 (00:44→17:24)
[2019-10-04] MEDS: Ipratropium/Albuterol Neb 3 ML IH SCH ×4 (03:23→15:44)
[2019-10-04 06:12] LABS: Basophils # 0.1 K/mcL (0.0-0.2); Basophils % 0.8 %; Eosinophils # 0.2 K/mcL (0.0-0.6); Eosinophils % 1.7 %; Hematocrit 42.2 % (35.3-44.9); Hemoglobin 14.8 g/dL (11.5-15.4); Immature Granulocytes % 0.6 % (0-4); Lymphocytes # 2.8 K/mcL (0.6-4.6); Lymphocytes % 30.9 %; Mean Corpuscular HGB Conc 35.1 g/dL (31.6-35.5); Mean Corpuscular Hemoglobin 29.2 pg (28.0-33.3); Mean Corpuscular Volume 83.4 fL (83.0-100.0); Mean Platelet Volume 9.3 fL (9.4-12.4); Monocytes # 0.6 K/mcL (0.0-1.3); Monocytes % 6.6 %; Neutrophils # 5.4 K/mcL (1.6-8.9); Platelet Count 282 K/mcL (140-400); Red Blood Count 5.06 M/mcL (3.82-4.97); Red Cell Distribution Width 12.6 % (11.5-14.5); Segmented Neutrophils % 59.4 %
[2019-10-04 06:30] LABS: BUN/Creatinine Ratio 9 (6-26); Blood Urea Nitrogen 6 mg/dL (6-20); Calcium 9.4 mg/dL (8.6-10.3); Carbon Dioxide 24 mEq/L (23-29); Chloride 101 mEq/L (98-107); Glucose 134 mg/dL (70-105); Osmolality,Calculated 288 (280-300); Sodium 139 mEq/L (136-145); eGFR For African Americans > 60 (> 60); eGFR For Non-African Americans > 60 (> 60)
[2019-10-04] MEDS ORDERED: Potassium Chloride Elixir 20 MEQ/15 ML UDC PO ONE (07:24)
[2019-10-04] MEDS: *HR* Heparin 5,000 UNIT/ML VIAL SQ SCH ×2 (08:03→13:30)
[2019-10-04] MEDS: Nicotine 21 MG PATCH.TD24 TD SCH (08:08)
[2019-10-04 17:07] VITALS: BP 142/101
[2019-10-04] MEDS ORDERED: *HR* LORazepam 2 MG/ML VIAL IVP ONE (17:10)
== END 2019-10-04 18:20 | disposition home or self-care (01) ==
LOC: EMEROOARM 19:12 → ICNU 19:12 → SUATTDRO 21:56 → ICNU 22:55 → 2NNU 10-02 11:52
PROVIDERS: ADMIT Internal Medicine; ATTEND Family Medicine

== ENCOUNTER 2021-03-21 13:08 | Observation (INO) ==
[2021-03-21 14:38] LABS: Bilirubin,Urine Negative (Negative); Blood,Urine Negative (Negative); Clarity,Urine Clear (Clear); Color,Urine Colorless (Yellow); Glucose,Urine (UA) Normal (Normal); Ketones,Urine Negative (Negative); Leukocyte Esterase,Urine Negative (Negative); Nitrite,Urine Negative (Negative); Protein,Urine Negative (Neg-Trace); Specific Gravity,Urine 1.005 (1.010-1.025); Urobilinogen,Urine Normal (Normal)
[2021-03-21] MEDS ORDERED: *HR* OxyCODONE/APAP 5/325 TABLET PO ONE (16:15)
[2021-03-21] MEDS ORDERED: *HR* HYDROmorphone (PF) 1 MG/ML SYRINGE IM ONE (17:42)
[2021-03-21] MEDS ORDERED: Ondansetron ODT 4 MG TAB.RAPDIS SL ONE (17:42)
[2021-03-21] MEDS ORDERED: *HR* HYDROcodone/Acet 5/325 mg TABLET PO PRN ×2 (19:25)
[2021-03-21] MEDS ORDERED: *HR* Promethazine 25 MG/ML VIAL IM PRN (19:25)
[2021-03-21] MEDS ORDERED: Ibuprofen 400 MG TABLET PO PRN (19:25)
[2021-03-21] MEDS ORDERED: Naloxone 0.4 MG/ML INJ IVP PRN (19:25)
[2021-03-21] MEDS ORDERED: Ondansetron ODT 4 MG TAB.RAPDIS SL PRN (19:25)
[2021-03-21] MEDS ORDERED: Acetaminophen 325 MG TABLET PO PRN (19:25)
[2021-03-21] MEDS ORDERED: *HR* OxyCODONE Immed Rel 5 MG TABLET PO PRN ×2 (19:25)
[2021-03-21] MEDS ORDERED: Melatonin 3 MG TABLET PO PRN (19:25)
[2021-03-21] MEDS ORDERED: Morphine Sulfate 2 MG/ML SYRINGE IVP ONE (19:32)
[2021-03-21] MEDS ORDERED: traZODone 50 MG TABLET PO SCH (21:00)
[2021-03-21] MEDS: Gabapentin 400 MG CAPSULE PO SCH (22:16)
[2021-03-21] MEDS: tiZANidine 4 MG TABLET PO PRN (22:22)
[2021-03-22] MEDS ORDERED: *HR* Heparin 5,000 UNIT/ML VIAL SQ SCH (06:00)
[2021-03-22 06:56] VITALS: BP 115/76
[2021-03-22] MEDS: Gabapentin 400 MG CAPSULE PO SCH (08:07)
[2021-03-22] MEDS ORDERED: *HR* LORazepam 1 MG TABLET PO PRN (08:45)
[2021-03-22] MEDS ORDERED: Metoprolol XL (24 HR) Succ 25 MG TAB.ER.24H PO SCH (09:00)
[2021-03-22] MEDS ORDERED: Nicotine 21 MG PATCH.TD24 TD SCH (09:00)
[2021-03-22] MEDS ORDERED: ARIPiprazole 10 MG TABLET PO SCH (09:45)
[2021-03-22 09:59] LABS: Basophils # 0.1 K/mcL (0.0-0.2); Basophils % 0.9 %; Eosinophils # 0.2 K/mcL (0.0-0.6); Eosinophils % 1.7 %; Hematocrit 45.3 % (35.3-44.9); Hemoglobin 15.2 g/dL (11.5-15.4); Immature Granulocytes % 0.8 % (0-4); Lymphocytes # 3.9 K/mcL (0.6-4.6); Lymphocytes % 42.2 %; Mean Corpuscular HGB Conc 33.6 g/dL (31.6-35.5); Mean Corpuscular Hemoglobin 29.7 pg (28.0-33.3); Mean Corpuscular Volume 88.5 fL (83.0-100.0); Monocytes # 0.6 K/mcL (0.0-1.3); Monocytes % 5.9 %; Neutrophils # 4.5 K/mcL (1.6-8.9); Platelet Count 257 K/mcL (140-400); Red Blood Count 5.12 M/mcL (3.82-4.97); Red Cell Distribution Width 13.5 % (11.5-14.5); Segmented Neutrophils % 48.5 %; White Blood Count 9.3 K/mcL (4.3-11.1)
[2021-03-22 10:18] LABS: BUN/Creatinine Ratio 25 (6-26); Blood Urea Nitrogen 17 mg/dL (6-20); Calcium 9.4 mg/dL (8.6-10.3); Carbon Dioxide 26 mEq/L (23-29); Chloride 104 mEq/L (98-107); Glucose 85 mg/dL (70-105); Magnesium 1.9 mg/dL (1.6-2.6); Osmolality,Calculated 291 (280-300); Phosphorous 3.6 mg/dL (2.7-4.5); Sodium 140 mEq/L (136-145); eGFR For African Americans > 60 (> 60); eGFR For Non-African Americans > 60 (> 60)
[2021-03-22] MEDS: tiZANidine 4 MG TABLET PO PRN (10:25)
[2021-03-22] MEDS ORDERED: Gabapentin 400 MG CAPSULE PO SCH (15:00)
== END 2021-03-22 10:30 | disposition home or self-care (01) ==
LOC: EMEROOARM 13:08 → 3BNU 13:08 → SUATTDRO 19:07 → 3BNU 20:35
PROVIDERS: ADMIT Internal Medicine; ATTEND Internal Medicine